=== PATIENT | female | born 1995 | race Two or more races ===

== ENCOUNTER 2019-06-28 17:33 | Emergency (ER) | payer SELFPAY ==
[~2019-06-28] VITALS: Ht 160 cm; Wt 109.6 kg
[2019-06-28 20:18] VITALS: BP 121/68
== END 2019-06-28 20:24 | disposition home or self-care (01) ==
LOC: ED 20:15
DX: M79.18 Myalgia, other site (principal); E86.0 Dehydration; E11.9 Type 2 diabetes mellitus without complications
CPT/HCPCS: 36415; 80053; 81001; 82550; 85025; 85651; 87086; 96361; 96374; 99283; J2270; J7030; 86038